=== PATIENT | female | born 1985 | race Caucasian/White ===

== ENCOUNTER → 2018-09-08 | Outpatient (CLI) | payer OTHER ==
[~2018-09-08] MED LIST: IOHEXOL 300 MG/ML 100ML VIAL. IV ONE
--- NOTE | 2018-09-08 13:17 | KCIC ---
CT scan of the head without and with contrast 09/08/2018 Clinical History: Headache for 10 days. Technique: Contiguous, 5 mm axial sections were obtained through the head without and with use of intravenous contrast. 75 cc of Omnipaque 300 were administered intravenously during this examination. One or more of the following individualized dose reduction techniques were utilized for this study: 1. Automated exposure control. 2. Adjustment of the mA and/or kV according to patient size. 3. Use of iterative reconstruction technique. Findings: The ventricles and sulci are within normal limits in size and configuration. No focal area of abnormal attenuation is seen involving the brain parenchyma. No extra-axial fluid collection is seen. No area of abnormal contrast enhancement is noted. No skull fracture is seen. The visualized paranasal sinuses are clear. Impression: Negative study. Electronically signed by: Garcia Alan MD (09/08/2018 1:14 PM) [id number]
== END | disposition home or self-care (01) ==
LOC: KCIC CT 10:30
PROVIDERS: ATTEND Family Medicine
DX: R51 Headache (principal)
CPT/HCPCS: 70470; Q9967

== ENCOUNTER → 2018-11-27 | Outpatient (CLI) | payer OTHER ==
[2018-11-27] MEDS: GADOBUTROL 7.5 MMOL/7.5 ML VIAL INT ART ONE (11:15)
[2018-11-27] MEDS: LIDOCAINE 1% Multi-Dose 20 ML VIAL. ID ONE (11:15)
[2018-11-27] MEDS: IOHEXOL 300 MG/ML 50 ML VIAL. INT ART ONE (11:15)
--- NOTE | 2018-11-27 15:38 | KCIC ---
EXAM: Right glenohumeral joint injection WITH Fluoroscopic guidance DATE: 11/27/2018 10:45 AM CLINICAL HISTORY: Right shoulder pain COMPARISON: None pertinent TECHNIQUE: The patient was informed of the indications and alternatives for this procedure as well as risks and benefits. No immediate contraindication identified. The patient provided informed, written consent. Laterality was confirmed by the entire team following a time out. Following initial right glenohumeral joint localization, a suitable area was sterilely prepped and draped. Local anesthesia was administered with 1% xylocaine. With intermittent fluoroscopic observation, a 22-gauge spinal needle was advanced into the right glenohumeral joint capsule. Subsequent infusion 12 mL solution containing 10 cc saline, 5 cc lidocaine 1%, 5 cc Isovue and 0.1 cc gadolinium. Hemostasis with local pressure. Local clinical exam negative for immediate complication. Patient informed re local potential signs or symptoms that may indicate need to return to ER/Ordering physician for further evaluation. Patient informed re precautionary measures after intra-synovial injection of anesthetic. Patient expressed understanding. Performing Physicians: Dr. Trace Muro Blood Loss: 0 cc Total Fluoroscopy time: 0.09 minutes Total spot images taken: 0 IMPRESSION: Successful intra-synovial injection right glenohumeral joint with gadolinium contrast pre-MRI arthrogram per clinical request. Electronically signed by: Bubba Muro MD (11/27/2018 3:34 PM) [id number]
--- NOTE | 2018-11-27 15:52 | KCIC ---
EXAM: MR arthrogram right shoulder DATE: 11/27/2018 11:45 AM COMPARISON: None INDICATION: Chronic right shoulder pain TECHNIQUE: Multiplanar multisequence MR imaging of the right shoulder was performed following the administration of intra-articular dilute gadolinium. FINDINGS: Iatrogenic distention of the right glenohumeral joint with gadolinium contrast. No significant subacromial subdeltoid bursal distention. AC joint is congruent. Type I acromion. No os acromiale. Rotator cuff is intact. Normal muscle signal and bulk. No significant fatty atrophy. The labrum is normal without discrete labral tear. No Hill-Sachs deformity. The intra and extra articular long head biceps tendon are intact. Intra-articular long head biceps tendon is seen within the bicipital groove. No evidence for fracture or osteonecrosis. On the large [id number] fluid sensitive sequence performed to evaluate the medial scapula, there is mild marrow edema within the medial/superior aspect of the scapula. This may be sequelae of bone contusion. With capsular distention, articular cartilage is preserved throughout. IMPRESSION: 1. No labral tear is identified. 2. Mild marrow edema at the medial margin of the scapula, possibly bone contusion. No discrete fracture plane is identified. 3. Rotator cuff is intact. No rotator cuff muscle atrophy. Electronically signed by: Bubba Muro MD (11/27/2018 3:47 PM) [id number]
== END | disposition home or self-care (01) ==
LOC: KCIC 10:21
PROVIDERS: ATTEND Family Medicine
DX: M25.511 Pain in right shoulder (principal); G89.29 Other chronic pain
CPT/HCPCS: 23350; 73040; 73222; A9585; Q9967